=== PATIENT | female | born 1980 | race African-American/Black ===

== ENCOUNTER 2016-12-01 10:54 | Emergency (ER) | payer OTHER ==
[~2016-12-01 10:54] MED LIST: [UNRECOGNIZED DRUG - REMARK]
[2016-12-01 12:15] LABS: BILIRUBIN,URINE MODERATE (NEG); GLUCOSE,URINE NEGATIVE (NEG); NITRITE,URINE NEGATIVE (NEG); PROTEIN,URINE 30 mg/dL (NEG-TRACE); UROBILINOGEN,URINE 0.2 mg/dL (0.2 mg/dL)
[2016-12-01 12:20] LABS: BASO % 1 % (0-3); EOS % 1 % (0-3); HEMATOCRIT 45.5 % (36.0-47.0); HEMOGLOBIN 15.2 g/dL (12.0-15.5); LYMPH # 1.5 x10^3/uL (1.0-4.8); LYMPH % 27 % (24-48); MEAN CORPUSCULAR HEMOGLOBIN 31 pg (25-35); MEAN CORPUSCULAR HGB CONC 33 g/dL (31-37); MEAN CORPUSCULAR VOLUME 93 fL (79-100); MONO % 7 % (0-9); NEUT % 65 % (31-73); PLATELET COUNT 297 x10^3/uL (140-400); RED CELL DISTRIBUTION WIDTH 14.9 % (11.5-14.5); WHITE BLOOD COUNT 5.7 x10^3/uL (4.0-11.0)
[2016-12-01 12:25] LABS: CALCIUM 8.8 mg/dL (8.5-10.1); GFR 75.1
[2016-12-01 12:26] LABS: NEG OBC UR NEG; POS OBC UR POS
[2016-12-01 12:34] LABS: BACTERIA,URINE 0 /HPF (0-FEW); RBC,URINE TNTC /HPF (0-2)
[2016-12-01 12:34] LABS: ALBUMIN 3.5 g/dL (3.4-5.0); ALBUMIN/GLOBULIN RATIO 0.9 (1.0-1.7); TOTAL BILIRUBIN 0.6 mg/dL (0.2-1.0); TOTAL PROTEIN 7.5 g/dL (6.4-8.2)
[2016-12-01 12:35] LABS: SQUAMOUS EPITHELIAL CELL,UR MOD /LPF
[2016-12-01] MEDS ORDERED: ONDA4TAB10 PO (13:01)
[2016-12-01] MEDS ORDERED: CEPH-264 PO (13:01)
[2016-12-01] MEDS ORDERED: FAMO-63 PO (13:01)
--- NOTE | 2016-12-01 13:01 | PHYS DOC ---
Past Medical History Past Medical History: Ectopic , Hypertension Additional Past Medical Histor: states she has hypertension, but does not have a PCP or clinic/medical home Past Surgical History: No Surgical History Alcohol Use: Occasionally Drug Use: Marijuana Adult General Chief Complaint Chief Complaint: ABDOMINAL PAIN [facility] HPI Patient is a 36 year old female who presents with complaint of vaginal bleeding and abdominal pain. Patient states that she has been having intermittent left-sided abdominal pain for the past 2 weeks. Patient states that the symptoms occur at random and currently she is not having pain. Patient however is concerned that she has been having vaginal bleeding that started yesterday. Patient states that she thinks her last menstrual period was in September and did not have one in October. Patient has had history of a tubal which was her main concern and why she came to get evaluated in the emergency department. The patient states that her vaginal bleeding has been consistent with a normal period. The patient denies any pelvic cramping. Patient states that her pain on the left side of her abdomen is dull and travels along her left side towards her back. The patient denies any nausea or vomiting and denies diarrhea. Review of Systems Review of Systems Constitutional: Denies fever or chills [] Eyes: Denies change in visual acuity, redness, or eye pain [] HENT: Denies nasal congestion or sore throat [] Respiratory: Denies cough or shortness of breath [] Cardiovascular: No additional information not addressed in HPI [] GI: Abdominal pain, denies nausea, vomiting, bloody stools or diarrhea [] : Vaginal bleeding, Denies dysuria or hematuria [] Musculoskeletal: Denies back pain or joint pain [] Integument: Denies rash or skin lesions [] Neurologic: Denies headache, focal weakness or sensory changes [] Allergies Allergies Allergies Coded Allergies Type Severity Reaction Last Updated Verified No Known Drug Allergies 08/15/15 No Physical Exam Physical Exam Constitutional: Alert, afebrile, no acute distress. [] HENT: Normocephalic, atraumatic, bilateral external ears normal, oropharynx moist, no oral exudates, nose normal. [] Eyes: PERRLA, EOMI, conjunctiva normal, no discharge. [] Neck: Normal range of motion, no tenderness, supple, no stridor. [] Cardiovascular:Heart rate regular rhythm, no murmur [] Lungs & Thorax: Bilateral breath sounds clear to auscultation [] Abdomen: Bowel sounds normal, soft, no tenderness, no masses, no pulsatile masses. Pelvic: Mild to moderate amount of blood in vaginal canal, cervical os closed, no cervical motion tenderness, no midline or bilateral adnexal tenderness to palpation [] Skin: Warm, dry, no erythema, no rash. [] Back: No tenderness, no CVA tenderness. [] Extremities: No tenderness, no cyanosis, no clubbing, ROM intact, no edema. [] Neurologic: Alert and oriented X 3, normal motor function, normal sensory function, no focal deficits noted. [] Current Patient Data Vital Signs Vital Signs Date Time Temp Pulse Resp B/P Pulse Ox O2 Delivery O2 Flow Rate FiO2 12/01/16 11:18 98.0 75 16 169/111 98 Room Air 98.0 Lab Values Laboratory Tests Test 12/01/16 11:25 12/01/16 12:05 Urine Collection Type Unknown Urine Color Red Urine Clarity Cloudy Urine pH 5.0 Urine Specific Lampe 1.020 Urine Protein 30mg/dL (NEG-TRACE) Urine Glucose (UA) Negativemg/dL (NEG) Urine Ketones (Stick) Tracemg/dL (NEG) Urine Blood Large (NEG) Urine Nitrite Negative (NEG) Urine Bilirubin Moderate (NEG) Urine Urobilinogen Dipstick 0.2mg/dL (0.2 mg/dL) Urine Leukocyte Esterase Moderate (NEG) Urine RBC Tntc/HPF (0-2) Urine WBC 5-10/HPF (0-4) Urine Squamous Epithelial Cells Mod/LPF Urine Bacteria 0/HPF (0-FEW) Urine Mucus Mod/LPF Urine Test Negative (NEG) White Blood Count 5.7x10^3/uL (4.0-11.0) Red Blood Count 4.90x10^6/uL (3.50-5.40) Hemoglobin 15.2g/dL (12.0-15.5) Hematocrit 45.5% (36.0-47.0) Mean Corpuscular Volume 93fL (79-100) Mean Corpuscular Hemoglobin 31pg (25-35) Mean Corpuscular Hemoglobin Concent 33g/dL (31-37) Red Cell Distribution Width 14.9% (11.5-14.5) H Platelet Count 297x10^3/uL (140-400) Neutrophils (%) (Auto) 65% (31-73) Lymphocytes (%) (Auto) 27% (24-48) Monocytes (%) (Auto) 7% (0-9) Eosinophils (%) (Auto) 1% (0-3) Basophils (%) (Auto) 1% (0-3) Neutrophils # (Auto) 3.7x10^3uL (1.8-7.7) Lymphocytes # (Auto) 1.5x10^3/uL (1.0-4.8) Monocytes # (Auto) 0.4x10^3/uL (0.0-1.1) Eosinophils # (Auto) 0.0x10^3/uL (0.0-0.7) Basophils # (Auto) 0.0x10^3/uL (0.0-0.2) Sodium Level 143mmol/L (136-145) Potassium Level 4.0mmol/L (3.5-5.1) Chloride Level 107mmol/L (98-107) Carbon Dioxide Level 28mmol/L (21-32) Anion Gap 8 (6-14) Blood Urea Nitrogen 13mg/dL (7-20) Creatinine 1.0mg/dL (0.6-1.0) Estimated GFR (Cockcroft-Gault) 75.1 BUN/Creatinine Ratio 13 (6-20) Glucose Level 100mg/dL (70-99) H Calcium Level 8.8mg/dL (8.5-10.1) Total Bilirubin 0.6mg/dL (0.2-1.0) Aspartate Amino Transferase (AST) 17U/L (15-37) Alanine Aminotransferase (ALT) 44U/L (14-59) Alkaline Phosphatase 70U/L (46-116) Total Protein 7.5g/dL (6.4-8.2) Albumin 3.5g/dL (3.4-5.0) Albumin/Globulin Ratio 0.9 (1.0-1.7) L Lipase 67U/L (73-393) L Laboratory Tests 12/01/16 12:05 Laboratory Tests 12/01/16 12:05 Microbiology 12/01/16 Wet Prep - Final, Complete EKG EKG Not performed [] Radiology/Procedures Radiology/Procedures Not performed [] Course & Med Decision Making Course & Med Decision Making Pertinent Labs and Imaging studies reviewed. (See chart for details) Patient appears in no acute distress and is nontoxic on exam. The patient does have signs of urinary tract infection but does not show any signs of sexually transmitted infection. The patient's test was negative. The patient is likely having an atypical., However patient will also need treatment for urinary tract infection. The patient be discharged with prescriptions for Keflex , Zofran, and Pepcid. Advised follow-up with primary doctor in 3-4 days and return to emergency department for any worsening symptoms. Patient voiced understanding and in agreement with treatment plan. Dragon Disclaimer Dragon Disclaimer This electronic medical record was generated, in whole or in part, using a voice recognition dictation system. Departure Departure Impression: Primary Impression: Urinary tract infection Additional Impression: Menstrual periods, abnormal Disposition: 01 HOME, SELF-CARE Condition: IMPROVED Referrals: UNKNOWN PCP NAME (PCP) Patient Instructions: Urinary Tract Infection Additional Instructions: Your test was negative today in the emergency department. Her exam does not appear consistent with an ectopic . Your urine results did show signs of infection. Please complete the antibiotic as prescribed. It is recommended that you follow-up with your primary doctor in 3-4 days and return to the emergency department for any worsening symptoms. Scripts Cephalexin (Keflex)500 Mg Capsule1 Cap PO TID #21 CAP Prov:VASILIY THAKKAR MD 12/01/16 Famotidine (Pepcid)20 Mg Vtgocd28 Mg PO BID #30 TAB Prov:VASILIY THAKKAR MD 12/01/16 Ondansetron (Zofran Odt)4 Mg Tab.rapdis4 Mg PO Q6HRS PRN NAUSEA/VOMITING #15 TAB Prov:VASILIY THAKKAR MD 12/01/16 Problem Qualifiers Primary Impression: Urinary tract infection Urinary tract infection type: site unspecified Hematuria presence: with hematuria Qualified Code: N39.0 - Urinary tract infection, site not specified VASILIY THAKKAR MD Dec 01, 2016 13:01
[2016-12-01 13:10] VITALS: BP 139/100
== END 2016-12-01 13:15 | disposition home or self-care (01) ==
LOC: ER 10:54
DX: N39.0 Urinary tract infection, site not specified (principal); N92.6 Irregular menstruation, unspecified; I10 Essential (primary) hypertension; F12.10 Cannabis abuse, uncomplicated
CPT/HCPCS: 80053; 81001; 81025; 83690; 85027; 87086; 99284; Q0111

== ENCOUNTER 2017-12-30 11:06 | Emergency (ER) | payer SELFPAY, MEDICAID ==
[2017-12-30 11:42] LABS: URINE HCG POC HCG NEGATIVE (Negative)
[2017-12-30 11:58] LABS: BILIRUBIN,URINE NEGATIVE (NEG); CLARITY,URINE CLEAR; COLOR,URINE YELLOW; GLUCOSE,URINE NEGATIVE (NEG); NITRITE,URINE NEGATIVE (NEG); PROTEIN,URINE NEGATIVE (NEG-TRACE)
[2017-12-30 11:59] LABS: BACTERIA,URINE MODERATE /HPF (0-FEW); SQUAMOUS EPITHELIAL CELL,UR MOD /LPF
[2017-12-30 12:00] LABS: RBC,URINE 0 /HPF (0-2); TRICHOMONAS,URINE PRESENT
[2017-12-30 12:14] LABS: ADD MAN DIFF? NO
[2017-12-30 12:18] LABS: BASO % 1 % (0-3); EOS # 0.1 x10^3/uL (0.0-0.7); EOS % 1 % (0-3); HEMATOCRIT 40.3 % (36.0-47.0); HEMOGLOBIN 13.8 g/dL (12.0-15.5); LYMPH # 1.8 x10^3/uL (1.0-4.8); LYMPH % 24 % (24-48); MEAN CORPUSCULAR HEMOGLOBIN 32 pg (25-35); MEAN CORPUSCULAR HGB CONC 34 g/dL (31-37); MEAN CORPUSCULAR VOLUME 93 fL (79-100); MONO # 0.4 x10^3/uL (0.0-1.1); MONO % 6 % (0-9); NEUT # 5.1 x10^3uL (1.8-7.7); NEUT % 69 % (31-73); PLATELET COUNT 221 x10^3/uL (140-400); RED BLOOD COUNT 4.33 x10^6/uL (3.50-5.40); RED CELL DISTRIBUTION WIDTH 13.6 % (11.5-14.5); WHITE BLOOD COUNT 7.4 x10^3/uL (4.0-11.0)
[2017-12-30 12:33] LABS: ANION GAP 8 (6-14); BLOOD UREA NITROGEN 13 mg/dL (7-20); BUN/CREATININE RATIO 14 (6-20); CALCIUM 8.6 mg/dL (8.5-10.1); CARBON DIOXIDE 29 mmol/L (21-32); CHLORIDE 100 mmol/L (98-107); CREATININE 0.9 mg/dL (0.6-1.0); GFR 84.3; GLUCOSE 80 mg/dL (70-99); POTASSIUM 4.2 mmol/L (3.5-5.1); SODIUM 137 mmol/L (136-145)
[2017-12-30 12:38] LABS: ALBUMIN 3.4 g/dL (3.4-5.0); ALBUMIN/GLOBULIN RATIO 0.9 (1.0-1.7); ALK PHOS 80 U/L (46-116); ALT (SGPT) 30 U/L (14-59); AST (SGOT) 17 U/L (15-37); LIPASE 103 U/L (73-393); TOTAL BILIRUBIN 0.6 mg/dL (0.2-1.0); TOTAL PROTEIN 7.3 g/dL (6.4-8.2)
[2017-12-30] MEDS: cefTRIAXone IM 250 MG VIAL IM (15:36)
[2017-12-31 14:17] LABS: CHLAMYDIA PROBE Negative (Negative); GC PROBE Negative (Negative)
== END 2017-12-30 15:45 | disposition home or self-care (01) ==
LOC: ER 11:06
DX: N73.0 Acute parametritis and pelvic cellulitis (principal); N70.11 Chronic salpingitis; D25.9 Leiomyoma of uterus, unspecified; I10 Essential (primary) hypertension; F12.10 Cannabis abuse, uncomplicated; F17.210 Nicotine dependence, cigarettes, uncomplicated
CPT/HCPCS: 36415; 76830; 76856; 80053; 81001; 81025; 83690; 85025; 87086; 87491; 87591; 96372; 99285-25; J0696; Q0111

== ENCOUNTER 2019-05-13 13:42 | Emergency (ER) | payer SELFPAY ==
[~2019-05-13] VITALS: Ht 167.6 cm; Wt 68.0 kg
[~2019-05-13 13:42] MED LIST changes: +CEPH-264 PO; +DOXY50CA PO; +FAMO-63 PO; +HYDR-3164 PO; +METR500T PO; +ONDA4TAB10 PO
[2019-05-13] MEDS ORDERED: NAPROXEN 500 MG TABLET PO STA (14:05)
[2019-05-13] MEDS ORDERED: cloNIDine HCL 0.1 MG TABLET PO ONE (14:15)
--- NOTE | 2019-05-13 14:31 | RAD ---
FOOT LEFT 3V 05/13/2019 2:06 PM INDICATION: Stepped on fish bones. COMPARISON: None available. TECHNIQUE: 3 views of the left foot are provided. FINDINGS: There is no acute fracture or dislocation. Bone mineralization is within normal limits. Joint spaces are maintained. Soft tissue swelling along the heel of the foot without radiopaque foreign density. There is no soft tissue gas or osseous erosion. IMPRESSION: No acute fracture or dislocation. No radiopaque foreign object is identified. Electronically signed by: Kusum Romo MD (05/13/2019 2:29 PM) [id number]
[2019-05-13 14:39] VITALS: BP 157/109
--- NOTE | 2019-05-13 14:45 | PHYS DOC ---
Past Medical History Past Medical History: Hypertension Additional Past Medical Histor: states she has hypertension, but does not have a PCP or clinic/medical home Past Surgical History: No Surgical History Additional Information: SMOKES 1 TO 2 BLACK & MILDS A DAY Alcohol Use: Heavy Drug Use: Marijuana Adult General Chief Complaint Chief Complaint: FOOT INJURY PAIN HPI HPI Patient is a 38 year old [f__sex] who presents with [] Review of Systems Review of Systems Constitutional: Denies fever or chills [] Eyes: Denies change in visual acuity, redness, or eye pain [] HENT: Denies nasal congestion or sore throat [] Respiratory: Denies cough or shortness of breath [] Cardiovascular: No additional information not addressed in HPI [] GI: Denies abdominal pain, nausea, vomiting, bloody stools or diarrhea [] : Denies dysuria or hematuria [] Musculoskeletal: Denies back pain or joint pain [] Integument: Denies rash or skin lesions [] Neurologic: Denies headache, focal weakness or sensory changes [] Endocrine: Denies polyuria or polydipsia [] All other systems were reviewed and found to be within normal limits, except as documented in this note. Current Medications Current Medications Current Medications Medications (Trade) Dose Ordered Sig/Keisha Start Time Stop Time Status Last Admin Dose Admin Clonidine HCl (Catapres) 0.1 mg 1X ONCE 05/13/19 14:15 05/13/19 14:16 DC 05/13/19 14:39 0.1 MG Naproxen (Naprosyn) 500 mg 1X STAT 05/13/19 14:05 05/13/19 14:07 DC 05/13/19 14:39 500 MG Allergies Allergies Allergies Coded Allergies Type Severity Reaction Last Updated Verified No Known Drug Allergies 08/15/15 No Physical Exam Physical Exam Constitutional: Well developed, well nourished, no acute distress, non-toxic appearance. [] HENT: Normocephalic, atraumatic, bilateral external ears normal, oropharynx moist, no oral exudates, nose normal. [] Eyes: PERRLA, EOMI, conjunctiva normal, no discharge. [] Neck: Normal range of motion, no tenderness, supple, no stridor. [] Cardiovascular:Heart rate regular rhythm, no murmur [] Lungs & Thorax: Bilateral breath sounds clear to auscultation [] Abdomen: Bowel sounds normal, soft, no tenderness, no masses, no pulsatile masses. [] Skin: Warm, dry, no erythema, no rash. [] Back: No tenderness, no CVA tenderness. [] Extremities: No tenderness, no cyanosis, no clubbing, ROM intact, no edema. [] Neurologic: Alert and oriented X 3, normal motor function, normal sensory function, no focal deficits noted. [] Psychologic: Affect normal, judgement normal, mood normal. [] Current Patient Data Vital Signs Vital Signs Date Time Temp Pulse Resp B/P (MAP) Pulse Ox O2 Delivery O2 Flow Rate FiO2 05/13/19 14:39 71 157/109 05/13/19 13:53 98.3 20 99 Room Air 98.3 EKG EKG [] Radiology/Procedures Radiology/Procedures [] Course & Med Decision Making Course & Med Decision Making Pertinent Labs and Imaging studies reviewed. (See chart for details) [] Dragon Disclaimer Dragon Disclaimer This electronic medical record was generated, in whole or in part, using a voice recognition dictation system. Departure Departure Impression: Primary Impression: Puncture wound of left foot Additional Impression: Hypertension Disposition: HOME, SELF-CARE Condition: STABLE Referrals: NO PCP (PCP) Patient Instructions: Hypertension, [id number], Puncture Wound, [id number] Additional Instructions: Follow up with your primary care doctor about your blood pressure. Keep your foot clean and dry. Return to the ER if symptoms worsen. Problem Qualifiers Primary Impression: Puncture wound of left foot Encounter type: initial encounter Qualified Codes: S91.332A - Puncture wound without foreign body, left foot, initial encounter Additional Impression: Hypertension Hypertension type: unspecified Qualified Codes: I10 - Essential (primary) hypertension VY EPSTEIN DIRECT CUST[employer]ER SERVICE REPRESENTATIVE May 13, 2019 14:45
== END 2019-05-13 14:59 | disposition home or self-care (01) ==
LOC: ER 13:42
DX: S91.332A Puncture wound without foreign body, left foot, initial encounter (principal); I10 Essential (primary) hypertension; F17.210 Nicotine dependence, cigarettes, uncomplicated; F10.20 Alcohol dependence, uncomplicated; Y90.9 Presence of alcohol in blood, level not specified; W22.8XXA Striking against or struck by other objects, initial encounter; Y93.89 Activity, other specified; Y92.89 Other specified places as the place of occurrence of the external cause; Y99.8 Other external cause status
CPT/HCPCS: 73630; 99284